=== PATIENT | female | born 1975 | race Hispanic/Latino ===

== ENCOUNTER 2023-11-18 16:42 | Emergency (ER) | payer OTHER ==
[~2023-11-18] VITALS: Ht 154.9 cm; Wt 105.7 kg
[2023-11-18 17:06] VITALS: O2SAT 96
[2023-11-18] MEDS ORDERED: METFORMIN HCL500 M2 PO (17:18)
[2023-11-18] MEDS ORDERED: ATORVASTATIN CA20 MG PO (17:18)
[2023-11-18] MEDS ORDERED: IBUPROFEN200 MG PO (17:21)
[2023-11-18] MEDS ORDERED: TYLENOL325 MG PO (17:21)
== END 2023-11-18 17:27 | disposition home or self-care (01) ==
LOC: FSED 16:45
DX: S00.83XA Contusion of other part of head, initial encounter (principal); H92.02 Otalgia, left ear; R21 Rash and other nonspecific skin eruption; V43.52XA Car driver injured in collision with other type car in traffic accident, initial encounter; Y92.488 Other paved roadways as the place of occurrence of the external cause; I10 Essential (primary) hypertension; E78.5 Hyperlipidemia, unspecified
CPT/HCPCS: 99283